=== PATIENT | male | born 1950 | race Caucasian/White ===

== ENCOUNTER → 2020-11-16 | Outpatient (CLI) | payer MEDICARE, OTHER | END | disposition home or self-care (01) | LOC: CVU 15:56 | PROVIDERS: ATTEND Registered Nurse | DX: I51.7 Cardiomegaly (principal); I48.91 Unspecified atrial fibrillation; I25.2 Old myocardial infarction | CPT/HCPCS: C8929; Q9957 ==

== ENCOUNTER 2021-01-04 13:51 | Outpatient (CLI) | payer MEDICARE | END 2021-01-04 23:59 | disposition home or self-care (01) | LOC: CVU 13:51 | PROVIDERS: ATTEND Registered Nurse | DX: I08.8 Other rheumatic multiple valve diseases (principal); I65.23 Occlusion and stenosis of bilateral carotid arteries; I25.5 Ischemic cardiomyopathy; I25.2 Old myocardial infarction | CPT/HCPCS: 93880; C8929; Q9957 ==